=== PATIENT | male | born 1950 | race Caucasian/White ===

== ENCOUNTER → 2019-07-09 15:49 | Outpatient (BNVA) | payer OTHER, SELFPAY | PROVIDERS: Family Provider Internal Medicine; PCP Internal Medicine; Visit Provider Orthopaedic Surgery | DX: M25.562 Pain in left knee (principal); M25.561 Pain in right knee | CPT/HCPCS: 73560; 73565 ==

== ENCOUNTER 2021-01-09 10:52 | Emergency (ER) | payer OTHER, SELFPAY ==
[2021-01-09 10:57] VITALS: BP 143/93; PULSE 81; RESP 18; TEMP 36.8; O2SAT 94; BMI 17.9
[2021-01-09 11:02] VITALS: O2SAT 95
--- NOTE | 2021-01-09 11:09 | ED_ITS ---
HPI - Neck Pain/Injury General: Chief Complaint: Neck Pain/Injury Stated Complaint: SEVERE NECK PAIN Time Seen by Provider: 01/09/21 11:04 History of Present Illness: HPI Narrative: Patient is a 70-year-old male comes to the ED with severe neck pain. Patient denies any injury, trauma or fall to cause neck pain. He says 2 days ago he started getting muscle pains in his neck and has progressively gotten worse. He rates his pain currently a 7 out of 10. He says any movement causes pain in his neck. He says he does have a history of a cervical fracture that occurred when he was younger. Denies any numbness, tingling or pain radiating down his extremities. Associated symptoms: Denies headache(s) or nausea Review of Systems Const: Denies: fever(s), chills or fatigue Eyes: Denies: change in vision or eye discomfort ENMT: Denies: throat pain, odynophagia, nasal discharge or nasal congestion Card: Denies: chest pain, palpitations, edema, swelling of feet/ankles, dyspnea on exertion or orthopnea Resp: Denies: dyspnea, productive cough or non-productive cough GI: Denies: abdominal pain, nausea, vomiting, diarrhea, constipation or hematochezia : Denies: flank pain, difficulty urinating, dysuria or hematuria Musc: Reports: neck pain; Denies: back pain or extremity swelling Skin/Breast: Denies: rash or new lesions Neuro: Denies: headache(s), numbness in extremities or weakness in extremities PFS ED PFSH: Family History Mother CAD (coronary artery disease) Bleeding disorder Clotting disorder Cancer Father Diabetes Stroke Denies family history of Dementia Hyperlipidemia Psychiatric illness Chronic kidney disease (CKD) Suicide Anesthesia complication Family history of premature coronary artery disease Lung disease Hypertension Social History Smoking and tobacco status: current every day smoker cigarettes Packs smoked per day: 1 Second hand smoke exposure: Yes Alcohol intake: former Physical Exam Const: COMMON NORMALS: no acute distress, patient oriented x3 and alert GENERAL APPEARANCE: cooperative and comfortable HENMT: COMMON NORMALS: normocephalic HEAD & SCALP: normocephalic MOUTH: Normal oral and palatal mucosa present THROAT: posterior oropharynx normal and uvula midline Neck/C-Spine: COMMON NORMALS: supple GENERAL: Yes normal visual inspection CERVICAL SPINE: Yes pain with cervical ROM, Yes Paracervical muscle tenderness bilateral, Yes Trapezius muscle tenderness bilateral and Yes collar present Resp: COMMON NORMALS: normal respiratory effort, No retractions, No use of accessory muscles and clear to auscultation bilaterally AUSCULTATION: clear to auscultation bilaterally Cardio: COMMON NORMALS: regular rate, regular rhythm, S1 normal heart sound present, S2 normal heart sound present, No gallops present (Cardio), No clicks present (Cardio), No murmurs present (Cardio) and Peripheral pulses 2+ throughout RATE: regular rate RHYTHM: regular rhythm HEART SOUNDS: S1 normal heart sound present and S2 normal heart sound present PERIPHERAL PULSES: Peripheral pulses 2+ throughout GI: COMMON NORMALS: Normal to inspection, nondistended, normoactive bowel sounds present, Soft to palpation, non-tender and no masses PALPATION: Yes Soft to palpation : COMMON NORMALS: Yes no CVA tenderness BLADDER/KIDNEY EXAM: Yes no CVA tenderness Back/Pelvis: COMMON NORMALS: no CVA tenderness Extremity: COMMON NORMALS: normal to inspection Neuro: COMMON NORMALS: patient oriented x3 and moves all extremities SENSORIUM/ORIENTATION: Yes alert Skin: GENERAL SKIN EXAM: dry skin Course Vital Signs: Vital signs: Vital Signs Temperature 98.3 F 01/09/21 10:57 Pulse Rate 80 01/09/21 12:25 Respiratory Rate 18 01/09/21 12:25 Blood Pressure 145/94 01/09/21 12:25 Pulse Oximetry 94 01/09/21 12:25 MDM - Neck Pain/Injury MDM Narrative: Medical decision making narrative: Patient is a 70-year-old male comes to the ED with neck pain. Patient denies any trauma or injury to cause pain. Exam shows most of patient's tenderness is located in the soft tissue and muscles of the neck. Patient has no spinal tenderness upon palpation. He reported here to the ED wearing c-collar. X-ray of cervical spine showed no acute fractures but noted some multilevel osteoarthritis and C3- C7. Patient was given a shot of Toradol, morphine and Norflex while here in the ED. Patient diagnosed with bilateral neck pain and osteoarthritis of the cervical spine. He was discharged home with ibuprofen 800 mg and Flexeril. Ret urn to ED precautions given. Follow-up with PCP in 7 to 10 days reevaluation. Patient understood agree with plan. Imaging Data^: Xray Ortho: Attestation: I personally reviewed and interpreted this imaging study as follows: Radiologist's impression: [address] [place] [address] XRay Report Signed Patient: Manjit Hernandes Unit #: [id number] : 1950 Age/Sex: 70 / M ADM Date: 01/09/21 Loc: ER Room/Bed: Attending Dr: Ordering Provider/Ordering MD: Joce Urban Date of Service: 01/09/21 Procedure(s): XR cervical spine 3V* 57407 Accession Number(s): [id number] Report Number: [id number] WS: [id number] Cervical spine, AP, odontoid, lateral with flexion, extension and neutral positions, 01/09/2021 Clinical Data: pain with ROM Comparison: None. Findings: No compression fractures are seen. There is an anterior cervical disc fusion at C5-C6. There is degenerative disc narrowing at C3-C4, C4-C5, C5-C6 and C6-C7. There is anterior osteophyte formation and anterior longitudinal ligament calcification from C3 through C7. There is no prevertebral soft tissue swelling. The odontoid is unremarkable. The soft tissues of the neck and the lung apices are normal. On flexion and extension there is slight limitation of motion, but the disc fusion is stable. XR/XR cervical spine 3V* [id number] Impression: 1. Anterior cervical disc fusion at C5-C6. 2. Multilevel osteoarthritis and disc narrowing from C3 through C7. 3. On flexion or extension there is slight limitation of motion but the disc fusion is stable. Dictated By: Fatou Dahl MD Signed By: Fatou Dahl MD Signed Date/Time: 01/09/211154 DD/ 51 Discharge Plan Discharge Patient Disposition: Home Clinical Impression: Neck pain, bilateral Osteoarthritis cervical spine Qualifiers: Spinal osteoarthritis complication: without myelopathy or radiculopathy Qualified Code(s): M47.812 - Spondylosis without myelopathy or radiculopathy, cervical region Condition: Stable Prescriptions: New ibuprofen 800 mg tablet 800 mg PO Q8H PRN (Reason: pain) Qty: 20 RF: 0 cyclobenzaprine 10 mg tablet 10 mg PO BID PRN (Reason: muscle spasm) Qty: 20 RF: 0 No Action albuterol sulfate inhalation RF: 0 Symbicort 80-4.5 mcg/actuation HFA aerosol inhaler 2 puff INHALATION BID RF: 0 Discharge Orders: Discharge ED (Routine); Ordered 01/09/21 Ordered By: Joce Urban Referrals: Scout Guido [Primary Care Provider] - Discharge Diet: Regular Discharge Activity: Increase activity as tolerated Activity Restrictions/Additional Instructions: Follow-up with medical provider as directed. Apply cold pack on neck to help with symptoms. Take medications as prescribed. Cyclobenzaprine is a muscle relaxer can cause some drowsiness so take at night before bed. If you are going to use the muscle relaxer during the day, use with caution due to its side effects. Return to the ER or your medical provider if condition worsens. Please read and understand discharge instructions. Thank you for choosing [facility] for your healthcare needs today. Please realize this is an emergency room and that we are providing you with a medical screening exam and this may not be complete and all inclusive of all the testing and or work up that you may need to determine your ailment or severity of your illness. It is very important that you follow up as instructed or that you return to the Emergency Department should you have concerns or if your condition changes or worsens in any way. Coding Level of Care Code ED Wireline Supervisor for Aly Hong Exam Comprehensive
--- NOTE | 2021-01-09 11:19 | XR_ITS ---
WS: [id number] Cervical spine, AP, odontoid, lateral with flexion, extension and neutral positions, 01/09/2021 Clinical Data: pain with ROM Comparison: None. Findings: No compression fractures are seen. There is an anterior cervical disc fusion at C5-C6. Ther e is degenerative disc narrowing at C3-C4, C4-C5, C5-C6 and C6-C7. There is anterior osteophyte forma tion and anterior longitudinal ligament calcification from C3 through C7. There is no prevertebral so ft tissue swelling. The odontoid is unremarkable. The soft tissues of the neck and the lung apices ar e normal. On flexion and extension there is slight limitation of motion, but the disc fusion is stabl e. XR/XR cervical spine 3V* [id number] Impression: 1. Anterior cervical disc fusion at C5-C6. 2. Multilevel osteoarthritis and disc narrowing from C3 through C7. 3. On flexion or extension there is slight limitation of motion but the disc fu flor is stable.
[2021-01-09 12:02] VITALS: RESP 20
[2021-01-09] MEDS: morphine 4 mg/mL SDV 1 mL IVP (12:02)
[2021-01-09] MEDS: orphenadrine 30 mg/mL Inj 2 mL 60 MG IVP (12:02)
[2021-01-09 12:25] VITALS: BP 145/94; PULSE 80; RESP 18; O2SAT 94
[2021-01-09] MEDS: ketorolac 30 mg/mL INJ IVP (12:25)
== END 2021-01-09 12:27 | disposition home or self-care (01) ==
PROVIDERS: Emergency Provider Physician Assistant; Family Provider Internal Medicine; PCP Internal Medicine
DX: M47.812 Spondylosis without myelopathy or radiculopathy, cervical region (principal); F17.210 Nicotine dependence, cigarettes, uncomplicated
CPT/HCPCS: 72040; 96374; 96375; 99283; J1885; J2270; J2360

== ENCOUNTER → 2021-05-20 13:14 | Outpatient (BNVA) | payer OTHER, SELFPAY | PROVIDERS: Family Provider Internal Medicine; PCP Internal Medicine; Visit Provider Surgery | DX: Z01.812 Encounter for preprocedural laboratory examination (principal); Z20.822 Contact with and (suspected) exposure to COVID-19 | CPT/HCPCS: 87635 ==

== ENCOUNTER 2021-05-27 07:33 | Day surgery (SDC) | payer OTHER, SELFPAY ==
[2021-05-25 10:44] VITALS: BMI 18.6
--- NOTE | 2021-05-27 08:19 | W.PM.OPSFHP ---
Same Day Surgery H&P Indication for Procedure/HPI DATE OF PROCEDURE: May 27, 2021 CHIEF COMPLAINT/INDICATIONFOR SURGICAL PROCEDURE: Problem with defecation PREOP DIAGNOSIS: Difficulty in defecation PLANNED PROCEDRUE: Operation Date: 05/27/21 09:00 Proposed Procedures p Colonoscopy 20360 R63.4 K59.00(Not Applicable) - Magdi Herbert MD 04/06/2021 This is a pleasant 71 years old gentleman with well-known history of COPD and being chronic smoker., Patient has been having difficulty in evacuating a large bulk of stool per his description it is being hard to expel it without additional bimanual maneuver. Does report some blood with stool and he had a colonoscopy 8 years ago was within normal limits. Patient correlates his hard stool by taking Ensure. Is referred to my practice today for consideration of colonoscopy. Patient also reports history of nonintentional weight loss. Interim history 05/27/2021 Patient comes today for colonoscopy for diagnostic purposes ROS All systems have been reviewed negative except as per the above or per problem list Medications/Allergies* Home Medications Medication Instructions Recorded Confirmed Type fluticasone 100 mcg-salmeterol 50 1 inh INHALATION BID 04/06/21 05/25/21 History mcg/dose blistr powdr for inhalation albuterol sulfate 1 inh INHALATION QID PRN 05/25/21 05/25/21 History Allergies/Adverse Reactions Allergy/AdvReac Type Severity Reaction Status Date / Time meperidine [From Demerol] Allergy ADR-Agitate Verified 05/27/21 09:09 d Pertinent History/Comorbid Conditions* Family History (Updated 07/09/19 @ 16:19 by Debbie Anderson LPN) Diabetes Father CAD (coronary artery disease) Mother Clotting disorder Mother Bleeding disorder Mother Cancer Mother Stroke Father Denies family history of Dementia Hyperlipidemia Psychiatric illness Chronic kidney disease (CKD) Suicide Anesthesia complication Family history of premature coronary artery disease Lung disease Hypertension Social History Smoking and tobacco status: current every day smoker cigarettes Packs smoked per day: 1 Second hand smoke exposure: Yes Alcohol intake: former Pertinent Exam Findings alert, oriented x 3, regular rate & rhythm and procedure specific exam findings (Abdominal examination nontender nondistended soft) Recommendations Surgery/Procedure today (Colonoscopy possible biopsy and possible polypectomy) Other Plans: Plan of care; After thorough history and physical examination and reviewing the chart, plan to perform diagnostic colonoscopy. I discussed with the patient in details the risks,benefits,alternatives and indications.The risk of aspiration, bleeding, soft tissue injury, perforation of the colon and other potential concomitant complications were explained to the patient in details,also the potential need for Laproscoy/Laparotomy to repair any related complications including but not limited to colectomy and or Closotomy.The patient understood this well and did agree to proceed. Rationale was carefully and clearly discussed with the patient.Appropriate informed consent have been reviewed and signed All questions have been answered and all concerns have been addressed to patient's satisfaction. Verbal and written Instructions were given to the patient for colonoscopy prep Coding Level of Care Code Acute Supervisor Picking Crew for Aly Hong
--- NOTE | 2021-05-27 08:47 | ANES.PREANE2 ---
Pre-Anesthetic Assessment Pre-Anesthetic Assessment: Height/Weight: Height 1.88 m Weight 65.771 kg Preop Diagnosis: Difficulty in defecation Proposed Procedure: Operation Date: 05/27/21 09:00 Proposed Procedures p Colonoscopy 29800 R63.4 K59.00(Not Applicable) - Magdi Herbert MD Was Beta Robert taken within 24 hours: N/A Was Clonidine taken within 24 hours: N/A Social: Social History: Tobacco and No alcohol Exam: Pre-Anes Outpt Exam: alert, oriented x 3 and regular rate & rhythm Additional Exam Findings (including area of procedure): rhonchi Airway: Submandibular: WNL Cervical ROM: WNL MP: 2 Dentition: False Pulmonary: Pulmonary: COPD Anesthetic Plan: ASA status: 3 Anesthesia: MAC Risk of > 500 ml blood loss (7ml/kg in children): No PFSH Anesthesia PFSH: Family History Mother CAD (coronary artery disease) Bleeding disorder Clotting disorder Cancer Father Diabetes Stroke Denies family history of Dementia Hyperlipidemia Psychiatric illness Chronic kidney disease (CKD) Suicide Anesthesia complication Family history of premature coronary artery disease Lung disease Hypertension Social History Smoking and tobacco status: current every day smoker cigarettes Packs smoked per day: 1 Second hand smoke exposure: Yes Alcohol intake: former Data Anesthesia Cardiac Studies: No Data to Display
[2021-05-27 08:48] VITALS: BP 127/88; PULSE 98; RESP 18; TEMP 36.8; O2SAT 94
[2021-05-27] MEDS: sodium chloride 0.9% 1,000 ML 30 ML IV (08:55)
[2021-05-27 09:35] VITALS: BP 97/67; PULSE 97; RESP 18; TEMP 36.1; O2SAT 95
[2021-05-27 09:45] VITALS: BP 98/73; PULSE 83; RESP 18; O2SAT 92
--- NOTE | 2021-05-27 14:57 | ANE.PACU2 ---
Inpatient post-anesthesia follow up: Airway intact: Yes Vital signs: Temperature 97.0 F Pulse Rate 83 Respiratory Rate 18 Blood Pressure 98/73 Pulse Oximetry 92 Oxygen Delivery Me thod Room Air Oxygen Flow Rate Fraction of Inspir ed Oxygen Hydration adequate: Yes Nausea and vomiting: No Pain level: 1 Mental status: Baseline
== END 2021-05-27 10:23 | disposition home or self-care (01) ==
PROVIDERS: Surgery; PCP Family Medicine; Visit Provider Surgery
PROC: 0DJD8ZZ Inspection of Lower Intestinal Tract, Via Natural or Artificial Opening Endoscopic (ICD-10-PCS; CPT 45378; principal; 2021-05-27 09:00)
DX: R63.4 Abnormal weight loss (principal); Z68.1 Body mass index [BMI] 19.9 or less, adult; K59.00 Constipation, unspecified; D12.8 Benign neoplasm of rectum; J44.9 Chronic obstructive pulmonary disease, unspecified; Z82.49 Family history of ischemic heart disease and other diseases of the circulatory system; Z83.3 Family history of diabetes mellitus; F17.210 Nicotine dependence, cigarettes, uncomplicated; Z82.3 Family history of stroke
CPT/HCPCS: 45380; 88305; 96360; J2704; J7030

== ENCOUNTER 2021-08-04 09:38 | Emergency (ER) | payer OTHER, SELFPAY ==
[2021-08-04] VITALS (8 sets, daily range): BP systolic 113–138; BP diastolic 62–89; PULSE 63–76; RESP 17–30; TEMP 36.3; O2SAT 87–97; BMI 17.9
--- NOTE | 2021-08-04 10:02 | W.ED.SOB ---
HPI - SOB/Dyspnea General: Chief Complaint: Shortness of Breath/Dyspnea Stated Complaint: PNEUMONIA, WHEEZING Time Seen by Provider: 08/04/21 09:48 Source: patient Mode of arrival: EMS Limitations: no limitations History of Present Illness: HPI Narrative: 65-year-old male presents emergency room with complaints of shortness of breath. States it began yesterday got progressively worse he was given albuterol and Solu-Medrol in route he also had asked episode of chest pain this morning with brought on by deep inspiration. Has not had any productive cough. Usually is on 2 L of oxygen is now is requiring 3 L by nasal cannula. Denies any fever no productive cough is not having any chest pain at this time. MD elicited complaint: shortness of breath and cough Pertinent past history: COPD Onset (ago): day(s) (1) Context: occurred during exertion Timing: constant Severity: moderate Exacerbating factors: exertion and coughing Relieving factors: oxygen, rest and bronchodilators Known history of: COPD Associated symptoms: Reports chest congestion, chest pain and cough; Deny abdominal pain, diaphoresis, dizziness, extremity pain, fever(s), hemoptysis, lightheadedness, myalgias, nausea, orthopnea, palpitations, paresthesias, polydipsia, polyuria, rash, sense of impending doom, syncope or vomiting Treatment prior to arrival: oxygen and bronchodilator Review of Systems Const: Denies: fever(s) or diaphoresis ENMT: Denies: throat pain, ear or mastoid pain, nasal discharge or nasal congestion Card: Reports: chest pain; Denies: palpitations, lightheadedness, syncope or orthopnea Resp: Reports: chest congestion; Denies: hemoptysis GI: Denies: abdominal pain, nausea or vomiting : Denies: flank pain, dysuria, urinary frequency or urinary urgency Musc: Denies: extremity pain Skin/Breast: Denies: rash or pruritus Neuro: Denies: dizziness Endo: Denies: polyuria or polydipsia [facility] PFSH: Medical History COPD (chronic obstructive pulmonary disease) Surgical History History of colonoscopy 2011 History of right knee surgery 1998 Hx of neck surgery Family History Mother CAD (coronary artery disease) Bleeding disorder Clotting disorder Cancer Father Diabetes Stroke Denies family history of Dementia Hyperlipidemia Psychiatric illness Chronic kidney disease (CKD) Suicide Anesthesia complication Family history of premature coronary artery disease Lung disease Hypertension Social History Smoking and tobacco status: current every day smoker cigarettes Packs smoked per day: 1 Second hand smoke exposure: Yes Alcohol intake: former Physical Exam Const: GENERAL APPEARANCE: cooperative ORIENTATION/CONSCIOUSNESS: Yes awake, Yes oriented to person, Yes oriented to place and Yes oriented to time HENMT: COMMON NORMALS: normocephalic, atraumatic and hearing grossly normal bilaterally HEAD & SCALP: normocephalic and atraumatic Neck/C-Spine: COMMON NORMALS: no JVD Resp: EFFORT & INSPECTION: Yes respiratory distress and Yes labored AUSCULTATION: crackles, wheezes and diminished lung sounds Cardio: COMMON NORMALS: no JVD, regular rate, regular rhythm and No murmurs present (Cardio) RATE: regular rate RHYTHM: regular rhythm GI: COMMON NORMALS: Soft to palpation and No hepatosplenomegaly present AUSCULTATION: Yes normoactive bowel sounds PALPATION: Yes Soft to palpation, No Tenderness to palpation present (GI), No Guarding due to palpation present (GI) and Yes No hepatosplenomegaly present Extremity: COMMON NORMALS: normal to inspection, capillary refill normal, no clubbing, cyanosis or edema, no calf tenderness and no pedal edema Neuro: SENSORIUM/ORIENTATION: Yes oriented to person, Yes oriented to place and Yes oriented to time Skin: COMMON NORMALS: no rashes or lesions noted GENERAL SKIN EXAM: no rashes or lesions noted Course Vital Signs: Vital signs: Vital Signs Temperature 97.3 F L 08/04/21 09:43 Pulse Rate 71 08/04/21 16:42 Respiratory Rate 22 H 08/04/21 16:42 Blood Pressure 113/62 08/04/21 13:39 Pulse Oximetry 96 08/04/21 16:42 MDM - SOB/Dyspnea Medical Decision Making Labs and imaging reviewed. Patient is feeling better COVID was negative treat for exacerbation COPD steroids doxycycline increase nebulizers oxygen follow-up with primary care doctor the next 3 to 4 days return to the ER if worsens. Medical Records I reviewed the patient's medical records. Lab Data I reviewed the patient's lab results. : 08/04/21 09:55 08/04/21 09:55 Labs/Radiology: Radiology Impressions Chest X-Ray 08/04/21 10:18 IMPRESSION: There are no prior films for comparison. 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 Laboratory Results WBC 10.2 10^3/uL (4.0-10.0) H 08/04/21 09:55 RBC 5.43 10^6/uL (4.1-5.3) H 08/04/21 09:55 Hgb 17.2 g/dL (11.7-16.6) H 08/04/21 09:55 Hct 51.8 % (42.0-52.0) 08/04/21 09:55 MCV 95.4 fl (80-94) H 08/04/21 09:55 MCH 31.7 pg (28.0-34.0) 08/04/21 09:55 MCHC 33.2 g/dL (30.0-36.0) 08/04/21 09:55 RDW 13.5 % (12.1-15.1) 08/04/21 09:55 Plt Count 242 10^3/cmm (130-400) 08/04/21 09:55 MPV 9.7 fL (7.4-10.4) 08/04/21 09:55 Neut % (Auto) 74.4 % 08/04/21 09:55 Lymph % (Auto) 15.8 % 08/04/21 09:55 Lawrence % (Auto) 7.1 % 08/04/21 09:55 Eos % (Auto) 1.9 % 08/04/21 09:55 Baso % (Auto) 0.6 % 08/04/21 09:55 Neut # (Auto) 7.62 10^3/uL (1.8-7.7) 08/04/21 09:55 Lymph # (Auto) 1.6 10^3/uL (0.8-4.8) 08/04/21 09:55 Lawrence # (Auto) 0.7 10^3/uL (0.2-0.9) 08/04/21 09:55 Eos # (Auto) 0.2 10^3/uL (0.0-0.8) 08/04/21 09:55 Baso # (Auto) 0.1 10^3/uL (0.0-0.1) 08/04/21 09:55 Nucleated RBC % (auto) 0 % 08/04/21 09:55 Nucleated RBCs # 0.0 /100WBC 08/04/21 09:55 Specimen Type Arterial 08/04/21 10:36 Sample Site Radial, right 08/04/21 10:36 ABG pH 7.49 (7.35-7.45) H 08/04/21 10:36 ABG pCO2 31.0 mmHg (35-45) L 08/04/21 10:36 ABG pO2 90.7 mmHg (80.0-100.0) 08/04/21 10:36 ABG HCO3 23.6 mmol/L (22-26) 08/04/21 10:36 ABG O2 Saturation 98.8 08/04/21 10:36 ABG Base Excess 1.3 mmol/L (-2.0-2.0) 08/04/21 10:36 Wilfredo Test Pos 08/04/21 10:36 A-a O2 Gradient 9.1 mmHg (5-10) 08/04/21 10:36 Hematocrit 51.0 % (42-52) 08/04/21 10:36 Hgb O2 Saturation 92.2 % (95-100) L 08/04/21 10:36 Carboxyhemoglobin 5.9 %THgb (0.4-20.1) 08/04/21 10:36 Methemoglobin 0.7 % (0.4-1.5) 08/04/21 10:36 Total Hemoglobin 16.6 g/dL (14-18) 08/04/21 10:36 Sodium 140.0 mmol/L (131-143) 08/04/21 10:36 Potassium 4.0 mmol/L (3.5-5.0) 08/04/21 10:36 Glucose 102.0 mg/dL (70-115) 08/04/21 10:36 Ionized Calcium 1.2 mmol/L (1.1-1.4) 08/04/21 10:36 O2 Delivery Device Nc 08/04/21 10:36 O2 Liters/Min 2.0 % 08/04/21 10:36 FiO2 28.0 % 08/04/21 10:36 Marble Machine Tender ID Markell 08/04/21 10:36 Sodium 138 mmol/L (136-145) 08/04/21 09:55 Potassium 3.6 mmol/L (3.5-5.1) 08/04/21 09:55 Chloride 102 mmol/L (98-107) 08/04/21 09:55 Carbon Dioxide 22 mmol/L (22-29) 08/04/21 09:55 Anion Gap 17.6 (5-19) 08/04/21 09:55 BUN 15 mg/dL (8-23) 08/04/21 09:55 Creatinine 0.7 mg/dL (0.7-1.2) 08/04/21 09:55 GFR Calculation 111.8 mL/min (90-130) 08/04/21 09:55 Glucose 92 mg/dL (65-115) 08/04/21 09:55 Calculated Osmolality 286 mOsm/kg (285-295) 08/04/21 09:55 Calcium 9.6 mg/dL (8.5-10.5) 08/04/21 09:55 Total Bilirubin 0.5 mg/dL (0.15-1.2) 08/04/21 09:55 AST 14 U/L (0-40) 08/04/21 09:55 ALT 11 U/L (0-41) 08/04/21 09:55 Alkaline Phosphatase 91 IU/L (40-130) 08/04/21 09:55 Creatine Kinase 61 U/L (39-308) 08/04/21 09:55 Troponin T Baseline 10 ng/L (0-15) 08/04/21 09:55 Troponin T 120 Minute 9.86 ng/L (0-15) 08/04/21 12:20 Delta Troponin T -0.14 ABS# (0-10) L 08/04/21 12:20 Total Protein 7.0 g/dL (6.6-8.7) 08/04/21 09:55 Albumin 4.5 g/dL (3.5-5.2) 08/04/21 09:55 Globulin 2.5 g/dL (1.3-4.6) 08/04/21 09:55 Coronavirus 229E (PCR) Not detected (NOT DETECT) 08/04/21 10:37 SARS-CoV-2 (PCR) Not detected (NOT DETECT) 08/04/21 10:37 Discharge Plan Discharge Patient Disposition: Home Clinical Impression: Acute exacerbation of chronic obstructive airways disease Condition: Stable Prescriptions: New Medrol (Pankaj) 4 mg tablets,dose pack See Rx Instructions .ROUTE .COMPLEX Qty: 21 0RF Rx Instructions: orally per package directions ipratropium-albuterol 0.5 mg-3 mg(2.5 mg base)/3 mL solution for nebulization 3 ml inhalation Q6H PRN (Reason: shortness of breath or wheezing) Qty: 180 0RF doxycycline hyclate 100 mg capsule 100 mg PO BID 10 Days Qty: 20 0RF No Action fluticasone propion-salmeterol [Wixela Inhub] 100-50 mcg/dose blister with device 1 inh inhalation BID 0RF ibuprofen 800 mg tablet 800 mg PO Q8H PRN (Reason: pain) Qty: 20 0RF Hold Instructions: Resume on 05/30/21. cyclobenzaprine 10 mg tablet 10 mg PO BID PRN (Reason: muscle spasm) Qty: 20 0RF albuterol sulfate 90 mcg/actuation Hfa Aerosol Inhaler 1 inh INHALATION QID PRN (Reason: Allergy Symptoms) 0RF Discharge Orders: Discharge ED (Routine); Ordered 08/04/21 Ordered By: Matt Cruz Other Ambulatory Orders: DME: Oxygen (Order) Location: None Selected Ordered By: Matt Cruz Referrals: Pallavi Alcaraz MD [Primary Care Provider] - Discharge Diet: Usual diet Discharge Activity: Limit activity as instructed Patient Instructions: Opioid Safety Activity Restrictions/Additional Instructions: With your primary care doctor within the week. Coding Level of Care Code ED Alcohol Law Enforcement Agent for Aly Fwd Exam Comprehensive
--- NOTE | 2021-08-04 10:18 | XR_ITS ---
WS: [id number] XR chest 1V portable [id number] REASON FOR EXAM: dyspnea/cough FINDINGS: Mild tortuosity and ectasia of the thoracic aorta without aneurysmal dilatation. Normal heart size. Overall hyperexpansion of the lungs with large bullous formation in the right upper lobe, left lower lobe, and both lung apices. Coarse central reticular interstitial lung opacities which appear to be chronic. Degenerative changes in the mid and lower thoracic spine and shoulder joints. No acute bony thorax ab normality. XR/XR chest 1V portable [id number] IMPRESSION: There are no prior films for comparison. 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
--- NOTE | 2021-08-04 10:18 | ECG_ITS ---
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 Measurements Intervals [place] Rate: 58 P: 75 UT: 146 QRS: 81 QRSD: 95 T: 78 QT: 433 QTc: 429 Interpretive Statements SINUS BRADYCARDIA WITH OCCASIONAL SUPRAVENTRICULAR PREMATURE COMPLEXES POSSIBLE ANTERIOR MYOCARDIAL INFARCTION , OF INDETERMINATE AGE [30 ms Q WAVE IN V3/V4, OR R < 0.2 mV IN V4] No previous ECG available for comparison Electronically Signed On 08-04-2021 17:10:05 HOME CARE COMPANION by Marcos Alanis M.D. [id number]
[2021-08-04 10:30] LABS: Basophils # 0.1 10^3/uL (0.0-0.1); Basophils % 0.6 %; Eosinophils # 0.2 10^3/uL (0.0-0.8); Eosinophils % 1.9 %; Hematocrit 51.8 % (42.0-52.0); Hemoglobin 17.2 g/dL (11.7-16.6); Lymphocytes # 1.6 10^3/uL (0.8-4.8); Lymphocytes % 15.8 %; Mean Corpuscular HGB Conc 33.2 g/dL (30.0-36.0); Mean Corpuscular Hemoglobin 31.7 pg (28.0-34.0); Mean Corpuscular Volume 95.4 fl (80-94); Mean Platelet Volume 9.7 fL (7.4-10.4); Monocytes # 0.7 10^3/uL (0.2-0.9); Monocytes % 7.1 %; Neutrophils # 7.62 10^3/uL (1.8-7.7); Neutrophils % 74.4 %; Nucleated Red Blood Cells % 0 %; Platelet Count 242 10^3/cmm (130-400); Red Blood Count 5.43 10^6/uL (4.1-5.3); Red Cell Distribution Width 13.5 % (12.1-15.1); White Blood Count 10.2 10^3/uL (4.0-10.0)
[2021-08-04 10:49] LABS: ABG PH Result 7.49 (7.35-7.45); Alveolar-Arterial Oxygen Gradi 9.1 mmHg (5-10); Base Excess ABG 1.3 mmol/L (-2.0-2.0); Blood Gas Allen Test Pos; Blood Gas Operator Identificat MONRO; Blood Gas Sample Site Radial, right; Blood Gas Sample Type Arterial; Carboxyhemoglobin 5.9 %THgb (0.4-20.1); HCO3 ABG 23.6 mmol/L (22-26); HGB O2 Sat 92.2 % (95-100); Ionized Calcium Level - ABG 1.2 mmol/L (1.1-1.4); Methemoglobin 0.7 % (0.4-1.5); Oxygen Device NC; Oxygen Saturation ABG 98.8; PO2 ABG 90.7 mmHg (80.0-100.0); Total Hemoglobin 16.6 g/dL (14-18)
[2021-08-04 11:27] LABS: Alanine Aminotransferase 11 U/L (0-41); Albumin Level 4.5 g/dL (3.5-5.2); Alkaline Phosphatase 91 IU/L (40-130); Anion Gap 17.6 (5-19); Aspartate Amino Transferase 14 U/L (0-40); Blood Urea Nitrogen 15 mg/dL (8-23); Calcium 9.6 mg/dL (8.5-10.5); Carbon Dioxide 22 mmol/L (22-29); Chloride 102 mmol/L (98-107); Creatine Phosphokinase 61 U/L (39-308); Globulin 2.5 g/dL (1.3-4.6); Glomerular Filtration Rate 111.8 mL/min (90-130); Glucose 92 mg/dL (65-115); Osmolality Calculated 286 mOsm/kg (285-295); Potassium 3.6 mmol/L (3.5-5.1); Sodium 138 mmol/L (136-145); Total Bilirubin 0.5 mg/dL (0.15-1.2)
[2021-08-04 11:28] LABS: Troponin(5th) Baseline 10 ng/L (0-15)
--- NOTE | 2021-08-04 12:18 | ECG_ITS ---
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 Measurements Intervals [place] Rate: 69 P: 70 WV: 148 QRS: 81 QRSD: 89 T: 78 QT: 402 QTc: 432 Interpretive Statements SINUS RHYTHM WITH MARKED SINUS ARRHYTHMIA POSSIBLE ANTERIOR MYOCARDIAL INFARCTION , OF INDETERMINATE AGE [30 ms Q WAVE IN V3/V4, OR R < 0.2 mV IN V4] Compared to ECG 08/04/2021 10:37:54 Sinus bradycardia no longer present Myocardial infarct finding still present Electronically Signed On 08-04-2021 17:16:32 NEEDLE CONTROL CHENILLER by Marcos Alanis M.D. [id number]
[2021-08-04 13:07] LABS: Troponin 5 2HR 9.86 ng/L (0-15)
--- NOTE | 2021-08-04 13:10 | PC.NURSE ---
Patient resting in bed this time. Patient states that chest pain is easing and not as bad . No further requests at this time.
[2021-08-04 13:28] LABS: Troponin 5 2HR Delta -0.14 ABS# (0-10)
[2021-08-04 13:58] LABS: Adenovirus Not Detected (NOT DETECT); Chlamydia Pneumoniae Not Detected (NOT DETECT); Coronavirus 229E,HKU1,NL63,OC4 Not Detected (NOT DETECT); Human Metapneumovirus Not Detected (NOT DETECT); Human Rhinovirus/Enterovirus Not Detected (NOT DETECT); Influenza A Not Detected (NOT DETECT); Influenza A H1 Not Detected (NOT DETECT); Influenza A H1-2009 Not Detected (NOT DETECT); Influenza A H3 Not Detected (NOT DETECT); Influenza B Not Detected (NOT DETECT); Mycoplasma Pneumoniae Not Detected (NOT DETECT); Parainfluenza Virus Type 1 Not Detected (NOT DETECT); Parainfluenza Virus Type 2 Not Detected (NOT DETECT); Parainfluenza Virus Type 3 Not Detected (NOT DETECT); Parainfluenza Virus Type 4 Not Detected (NOT DETECT); Respiratory Syncytial Virus A Not Detected (NOT DETECT); Respiratory Syncytial Virus B Not Detected (NOT DETECT); SARS-COV-2 Not Detected (NOT DETECT)
[2021-08-04] MEDS: ipratropium-albuterol 3 mL Neb INHALATION (14:34)
== END 2021-08-04 16:40 | disposition home or self-care (01) ==
PROVIDERS: Emergency Provider Family Medicine; PCP Family Medicine
DX: J44.1 Chronic obstructive pulmonary disease with (acute) exacerbation (principal); F17.210 Nicotine dependence, cigarettes, uncomplicated; Z20.822 Contact with and (suspected) exposure to COVID-19
CPT/HCPCS: 36415; 36600; 71045; 80051; 80053; 82330; 82550; 82805; 84484; 85025; 87635; 93005; 94640; 96374; 99284; J2930

== ENCOUNTER 2021-10-01 09:08 | Day surgery (SDC) | payer OTHER, SELFPAY ==
[2021-09-30 11:45] VITALS: BMI 17.7
[2021-10-01 09:30] VITALS: BP 106/74; PULSE 76; RESP 20; TEMP 36.7; O2SAT 98
[2021-10-01] MEDS: sodium chloride 0.9% 1,000 ML 30 ML IV (09:33)
--- NOTE | 2021-10-01 09:40 | W.PM.OPSUD ---
Surgery/Procedure H&P Update DATE OF PROCEDURE: October 01, 2021 DATE H&P PERFORMED: 09/16/21 H&P UPDATE INFORMATION: I have reviewed H&P completed within last 30 days, I have examined patient prior to procedure and No changes to prior documentation PREOP DIAGNOSIS: Dysphagia PRIMARY INDICATION FOR PROCEDURE: The same PLANNED PROCEDURE: Operation Date: 10/01/21 10:00 Proposed Procedures p EGD 81644/r13.10(Not Applicable) - Magdi Herbert MD
--- NOTE | 2021-10-01 10:41 | ANES.PREANE2 ---
Pre-Anesthetic Assessment Height/Weight: Height 1.88 m Weight 62.596 kg Temp Pulse Resp BP Pulse Ox 98.1 F 76 20 H 106/74 98 10/01/21 09:30 10/01/21 09:30 10/01/21 09:30 10/01/21 09:30 10/01/21 09:30 Preop Diagnosis: Dysphagia Operation Date: 10/01/21 10:00 Proposed Procedures p EGD 00168/r13.10(Not Applicable) - Magdi Herbert MD Familial anesthetic complications: none Was Beta Robert taken within 24 hours: N/A Was Clonidine taken within 24 hours: N/A Last intake: Intake Last Liquid Date 09/30/21 Last Liquid Time 23:30 Last Solid Date 09/30/21 Last Solid Time 23:30 Social Tobacco and No alcohol Exam alert, oriented x 3, clear to auscultation bilaterally and regular rate & rhythm Airway Mallampati: Class I Dentition: false Pulmonary Chronic Obstructive Pulmonary Disease (2 L NC) Anesthetic Plan ASA status: 3 Anesthesia: MAC Risk of > 500 ml blood loss (7ml/kg in children): No Medications/Allergies Home Medications Medication Instructions Recorded Confirmed Last Taken Type fluticasone 100 mcg-salmeterol 50 1 inh INHALATION BID 04/06/21 10/01/21 09/30/21 History mcg/dose blistr powdr for inhalation (Wixela Inhub) albuterol sulfate 90 mcg/actuation 1 inh INHALATION QID PRN 05/25/21 10/01/21 09/30/21 History aerosol inhaler ipratropium 0.5 mg-albuterol 3 mg 3 ml INHALATION Q6H PRN #180 ml 08/04/21 10/01/21 09/30/21 Rx (2.5 mg base)/3 mL nebulization soln Allergies Allergy/AdvReac Type Severity Reaction Status Date / Time meperidine [From Demerol] Allergy ADR-Agitate Verified 10/01/21 09:21 d Current Medications Generic Name Dose Route Start Last Admin Trade Name Freq PRN Reason Stop Dose Admin Sodium Chloride 1,000 mls @ 30 mls/hr 10/01/21 09:15 10/01/21 09:33 Sodium Chloride 0.9% IV 30 mls/hr .Q24H SHAISTA Administration PFSH Anesthesia Medical History COPD (chronic obstructive pulmonary disease) Surgical History History of colonoscopy 2011 History of right knee surgery 1998 Hx of neck surgery Family History Mother CAD (coronary artery disease) Bleeding disorder Clotting disorder Cancer Father Diabetes Stroke Denies family history of Dementia Hyperlipidemia Psychiatric illness Chronic kidney disease (CKD) Suicide Anesthesia complication Family history of premature coronary artery disease Lung disease Hypertension Social History Smoking and tobacco status: current every day smoker cigarettes Packs smoked per day: 1 Second hand smoke exposure: Yes Alcohol intake: former Data Anesthesia Cardiac Studies: No Data to Display
[2021-10-01 11:01] VITALS: BP 108/75; PULSE 76; RESP 18; TEMP 36.7; O2SAT 98
[2021-10-01 11:15] VITALS: BP 114/76; PULSE 76; RESP 18; TEMP 36.8; O2SAT 95
--- NOTE | 2021-10-01 17:40 | ANE.PACU2 ---
Inpatient post-anesthesia follow up: Airway intact: Yes Vital signs: Temperature 98.2 F Pulse Rate 76 Respiratory Rate 18 Blood Pressure 114/76 Pulse Oximetry 95 Oxygen Delivery Me thod Room Air Oxygen Flow Rate 2 Fraction of Inspir ed Oxygen Hydration adequate: Yes Nausea and vomiting: No Pain level: 1 Mental status: Baseline
== END 2021-10-01 11:35 | disposition home or self-care (01) ==
PROVIDERS: PCP Family Medicine; Visit Provider Surgery
PROC: 0DJ08ZZ Inspection of Upper Intestinal Tract, Via Natural or Artificial Opening Endoscopic (ICD-10-PCS; CPT 43235; principal; 2021-10-01 10:00)
DX: R13.10 Dysphagia, unspecified (principal); K29.70 Gastritis, unspecified, without bleeding; J44.9 Chronic obstructive pulmonary disease, unspecified; Z99.81 Dependence on supplemental oxygen; F17.210 Nicotine dependence, cigarettes, uncomplicated
CPT/HCPCS: 43239; 88305; 88342; J2704; J7030

== ENCOUNTER → 2021-10-22 14:07 | Outpatient (BNVA) | payer OTHER, SELFPAY | PROVIDERS: PCP Family Medicine; Visit Provider Surgery | DX: Z09 Encounter for follow-up examination after completed treatment for conditions other than malignant neoplasm (principal); K29.70 Gastritis, unspecified, without bleeding | CPT/HCPCS: 99213 ==

== ENCOUNTER → 2021-10-28 14:14 | Outpatient (BNVA) | payer OTHER, SELFPAY | PROVIDERS: PCP Family Medicine; Visit Provider Internal Medicine | DX: J44.9 Chronic obstructive pulmonary disease, unspecified (principal); R06.02 Shortness of breath; R07.9 Chest pain, unspecified; R06.00 Dyspnea, unspecified; F17.210 Nicotine dependence, cigarettes, uncomplicated | CPT/HCPCS: 99204 ==

== ENCOUNTER 2021-12-11 09:13 | Outpatient (CLI) | payer OTHER, SELFPAY ==
--- NOTE | 2021-12-11 09:30 | USCV_ITS ---
Manjit Hernandes Age: 71 Gender: M : 1950 Exam Date: 12/11/2021 10:03 Ordering Phys: Marcos Alanis M.D ([email or web address]) Technologist: Kelly Hanson [place] [facility] [place]: SOB BP: / HR: 57 Rhythm: Sinus Technical Quality: Adequate MEASUREMENTS (Male / Female) Normal Values 2D ECHO LV Diastolic Diameter PLAX 4.2 cm 4.2 - 5.9 / 3.9 - 5.3 cm LV Systolic Diameter PLAX 2.9 cm LV Chamber Size 3.8 cm IVS Diastolic Thickness 0.9 cm 0.6 - 1.0 / 0.6 - 0.9 cm IVS Systolic Thickness 0.8 cm LVPW Diastolic Thickness 0.8 cm 0.6 - 1.0 / 0.6 - 0.9 cm LVPW Systolic Thickness 1.1 cm RV Chamber Size 3.4 cm LVOT Diameter 2.1 cm LV Ejection Fraction 2D Teich 58.7 % LV Ejection Fraction MOD 2C 65.5 % LV Ejection Fraction 2C AL 65.9 % LA Diameter 2.1 cm LA Width 2.4 cm LA Height 2.9 cm RA Width 3.5 cm RA Height 3.1 cm Aorta at Sinotubular Diameter 2.9 cm IVC Diameter 1.3 cm M-MODE Aortic Annulus Diameter 4.1 cm LA Ao Ratio MM 0.6 MV E Point Septal Separation 0.4 cm DOPPLER AV Peak Velocity 150.0 cm/s LVOT Peak Velocity 118.0 cm/s AV Area Cont Eq vti 2.4 cm squared AV Area Cont Eq pk 2.7 cm squared MV Area PHT 3.3 cm squared Mitral E to A Ratio 2.7 MV E' Velocity 57.5 cm/s Mitral E to MV E' Ratio 8.0 Mitral E to LV E' Lateral Ratio 9.3 Mitral E to LV E' Septal Ratio 7.0 TR Peak Velocity 197.6 cm/s TR Peak Gradient 15.6 mmHg TR Mean Velocity 155.2 cm/s TR Mean Gradient 10.5 mmHg TR Velocity Time Integral 61.9 cm TV Peak E Velocity 72.0 cm/s Right Atrial Pressure 3.0 mmHg Pulmonary Artery Systolic Pressu 18.6 mmHg PV Peak Velocity 59.0 cm/s RV Acceleration Time 0.1 s RV Ejection Time 0.3 s RV AcT/ET 0.3 FINDINGS Left Ventricle Normal left ventricular size. LV systolic function is normal with EF of 55-60%. No regional wall motion abnormalities. Right Ventricle The right ventricle is normal in size and function. Right Atrium The right atrium is normal in size. Left Atrium The left atrium is normal in size. Mitral Valve Structurally normal mitral valve without significant stenosis or prolapse. There is no mitral regurgitation. Aortic Valve Structurally normal aortic valve without significant sclerosis or stenosis. There is no aortic regurgitation. Tricuspid Valve Structurally normal tricuspid valve without significant stenosis. Trace tricuspid regurgitation. Pulmonary artery systolic pressure is normal. Pulmonic Valve Not well visualized.Mild pulmonic regurgitation Pericardium Normal pericardium without effusion. Aorta Normal ascending aorta dimension. IVC CONCLUSIONS LV systolic function is normal with EF of 55-60% Trace tricuspid regurgitation Mild pulmonic regurgitation No comparison studies are available Marcos Alanis MD (Electronically Signed) Final Date: 12 December 2021 11:37 S
== END 2021-12-11 09:14 | disposition home or self-care (01) ==
LOC: RAD 09:17
PROVIDERS: PCP Family Medicine; Visit Provider Internal Medicine
DX: R06.02 Shortness of breath (principal)
CPT/HCPCS: 93306

== ENCOUNTER → 2022-01-06 14:59 | Outpatient (BNVA) | payer OTHER, SELFPAY | PROVIDERS: PCP Family Medicine; Visit Provider Internal Medicine | DX: R06.00 Dyspnea, unspecified (principal); F17.210 Nicotine dependence, cigarettes, uncomplicated | CPT/HCPCS: 99213 ==

== ENCOUNTER 2022-03-03 13:41 | Outpatient (CLI) | payer OTHER, SELFPAY ==
--- NOTE | 2022-03-03 14:00 | FL_ITS ---
WS: [id number] Modified barium swallow, 03/03/2022 Clinical Data: R13.10 - Dysphagia, unspecified Comparison: None. Fluoroscopy time: 1min [id number] # of spot films: 1 Findings: The patient had an anterior cervical disc fusion at C5-C6. The patient had a functional oral phase of swallowing. There is a slight delay in propulsion of material past the C5-6 anterior cervical disc f usion. There is no aspiration or penetration. The barium tablet delayed in the midesophagus but swall owing water propelled the tablet into the stomach. FL/FL barium swallow modifd [id number] Impression: 1. Negative for aspiration or penetration. 2. Slight delay in propulsion of material passed C5-6 ACDF. 3. Minimal delay in the midesophagus of moving barium tablet into the stomach.
== END 2022-03-03 13:42 | disposition home or self-care (01) ==
LOC: RAD 13:43
PROVIDERS: PCP Family Medicine; Visit Provider Surgery
DX: R13.10 Dysphagia, unspecified (principal)
CPT/HCPCS: 74230; 92611

== ENCOUNTER → 2022-03-08 15:11 | Outpatient (BNVA) | payer OTHER, SELFPAY | PROVIDERS: PCP Family Medicine; Visit Provider Surgery | DX: R13.10 Dysphagia, unspecified (principal) | CPT/HCPCS: 99212 ==

== ENCOUNTER → 2022-09-14 15:25 | Outpatient (BNVA) | payer OTHER, SELFPAY | PROVIDERS: PCP Family Medicine; Visit Provider Internal Medicine Pulmonary Disease | DX: J44.9 Chronic obstructive pulmonary disease, unspecified (principal); R91.8 Other nonspecific abnormal finding of lung field; F17.210 Nicotine dependence, cigarettes, uncomplicated | CPT/HCPCS: 99204 ==

== ENCOUNTER → 2022-12-17 10:06 | Outpatient (BNVA) | payer OTHER, SELFPAY | PROVIDERS: PCP Family Medicine; Visit Provider Internal Medicine Pulmonary Disease | DX: J44.9 Chronic obstructive pulmonary disease, unspecified (principal); R91.1 Solitary pulmonary nodule; F17.210 Nicotine dependence, cigarettes, uncomplicated; Z99.81 Dependence on supplemental oxygen | CPT/HCPCS: 99214 ==

== ENCOUNTER 2023-01-26 12:25 | Outpatient (CLI) | payer OTHER, SELFPAY ==
--- NOTE | 2023-01-26 | MR_ITS ---
WS: [id number] MRI LUMBAR SPINE NONCONTRAST TECHNIQUE: Sagittal T1, T2 and STIR imaging. Axial T1 and T2 imaging. CLINICAL INFORMATION: LBP COMPARISON: None. FINDINGS: Mild lumbar curve. Mild compression superior endplates L2, L3, and L4 with mild compression worse at L3 with loss of approximately 20% vertebral body height. No significant retropulsion. Soft tissue oni ma in the L2, L3, and L4 superior endplates. Small amount of edema in the RIGHT L3 facet may be postt raumatic or degenerative. 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 L1-L2: Mild annular bulging. Slight effacement of the ventral thecal sac. Tiny annular fissure. Mild facet arthropathy. Spinal canal and foramen are patent. L2-L3: Mild annular bulging with slight narrowing of subarticular recess bilaterally with mild centra l canal stenosis. Mild facet arthropathy. Mild LEFT and no significant RIGHT foraminal narrowing. L3-L4: Mild annular bulging with slight narrowing of the subarticular recess bilaterally. Mild centra l canal stenosis. Impingement traversing L4 nerve root nerve roots bilaterally. Mild LEFT and no sign ificant RIGHT foraminal narrowing. Moderate facet arthropathy ligamentum flavum hypertrophy. L4-L5: Mild annular bulging with slight effacement of the ventral thecal sac. Mild central canal sten osis with narrowing of the subarticular recess. Moderate facet arthropathy. Mild LEFT greater than RI GHT foraminal narrowing. L5-S1: Mild annular bulging with a tiny annular fissure. Shallow central protrusion slightly contacts the traversing S1 nerve roots bilaterally. Mild facet arthropathy. Foramen are patent. Visualized pelvic bony structures: Normal. Paravertebral soft tissues: Normal. Prior postoperative changes anterior fusion of the cervical spine at C5-C6.Disc osteophyte complexes C3-C4 and C4-C5 with mild central canal stenosis. Slightly aneurysmal infrarenal abdominal aorta with peripheral mural thrombus measuring 2.2 x 2.2 cm in AP by transverse MR/MR lumbar spine wo con* [id number] IMPRESSION: 1. Mild compression of the superior endplates at L2, L3, and L4 with mild daisy a. This is worse at L3 with mild compression superior endplate measuring approx imately 20%. No retropulsion. 2. Mild central canal stenosis L2-L3, L3-L4, L4-L5 with mild annular bulging a nd slight impingement subarticular recess bilaterally. 3. Small central protrusion L5-S1 with tiny annular fissure with slight imping ement traversing S1 nerve roots. 4. Moderate facet arthropathy L3-L5.
--- NOTE | 2023-01-26 | MR_ITS ---
WS: [id number] MRI LEFT KNEE NONCONTRAST TECHNIQUE: Axial PD, coronal PD fat sat, coronal PD, sagittal PD, and sagittal PD fat-sat images obta ined. Patient declined contrast. CLINICAL INFORMATION: LT KNEE PAIN COMPARISON: None. FINDINGS: Distal quadriceps and patella tendons are intact. Normal ACL and PCL. Normal lateral meniscus. Comple x tear involving the posterior horn medial meniscus extending to the articular surface. Slight periph eral extrusion of the medial meniscus. 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 Normal medial and lateral c ollateral ligaments. Normal popliteal fossa. MR/MR knee LT wo con* [id number] IMPRESSION: 1. Normal ACL and PCL. 2. Complex tear involving the posterior horn medial meniscus extending to the articular surface with mild peripheral extrusion. 3. 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 4. Moderate tricompartmental arthritis 5. No other acute findings. Outbridge grading: grade III: partial-thickness cartilage loss with focal ulcer ation
--- NOTE | 2023-01-26 12:45 | CTR_ITS ---
PROCEDURE INFORMATION: Exam: CT Chest Without Contrast; Diagnostic Exam date and time: 01/26/2023 12:59 PM Age: 72 years old Clinical indication: Condition or disease; Lung condition and disease; Pulmonary nodule, solitary; Additional info: Pulmonary nodules, PT having mri too TECHNIQUE: Imaging protocol: Diagnostic computed tomography of the chest without contrast. Radiation optimization: All CT scans at this facility use at least one of these dose optimization techniques: automated exposure control; mA and/or kV adjustment per patient size (includes targeted exams where dose is matched to clinical indication); or iterative reconstruction. REPORTING DATA: Count of CT and Cardiac NM exams in prior 12 months: This patient has received 3 known CTs and 0 known cardiac nuclear medicine studies in the 12 months prior to the current study. COMPARISON: CT chest abdpel w/*[id number] 09/08/2022 12:06 PM RADIATION DOSE METRICS: Total DLP (mGy-cm): 202.66 FINDINGS: Lungs: Extensive COPD with pronounced emphysematous changes, stable. There is an irregular stellate shaped opacity right upper lobe unchanged likely representing scar. 1.4 cm subpleural nodule left lingula unchanged. Additional sessile shaped density left lingula a the also unchanged likely representing scar chronic atelectasis. Stable small subpleural nodule right lower lobe measuring 6 mm. Scattered linear atelectasis lower lung zones, unchanged. Pleural spaces: Unremarkable. No pneumothorax. No pleural effusion. Heart: Heart is relatively small in size unchanged likely secondary to COPD. Mild calcification of coronary arteries. No significant pericardial effusion. A in the Lymph nodes: Unremarkable. No enlarged lymph nodes. Vasculature: Unremarkable. No aortic aneurysm. Bones/joints: Mild-moderate degenerative changes throughout the thoracic spine. No acute bony abnormalities. Soft tissues: Unremarkable. CT/CT chest wo con [id number] IMPRESSION: 1. 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 2. Stable circumscribed subpleural pulmonary nodules left lingula and right lower lobe largest which measures 1.4 cm, likely benign. Recommend six-month follow-up study for continued surveillance. 3. Probable scarring right upper lobe and left lingula also unchanged. COMMENTS: In the absence of a history or active diagnosis of lung cancer, it is recommended that this patient with emphysema be evaluated for enrollment in a low dose CT lung cancer screening program.
== END 2023-01-26 12:26 | disposition home or self-care (01) ==
PROVIDERS: PCP Family Medicine; Visit Provider Internal Medicine Pulmonary Disease
DX: R91.8 Other nonspecific abnormal finding of lung field (principal); M25.561 Pain in right knee; J43.9 Emphysema, unspecified; M51.27 Other intervertebral disc displacement, lumbosacral region; M48.061 Spinal stenosis, lumbar region without neurogenic claudication; S83.232A Complex tear of medial meniscus, current injury, left knee, initial encounter; X58.XXXA Exposure to other specified factors, initial encounter; M22.42 Chondromalacia patellae, left knee
CPT/HCPCS: 71250; 72148; 73721

== ENCOUNTER 2023-02-08 12:42 | Outpatient (CLI) | payer OTHER, SELFPAY ==
[2023-02-08 12:50] VITALS: BP 139/91
[2023-02-08 13:09] VITALS: PULSE 69; RESP 18; O2SAT 94
[2023-02-08] MEDS: albuterol 2.5 mg/3 mL Neb INHALATION (13:09)
[2023-02-08 13:14] VITALS: PULSE 72
== END 2023-02-08 12:43 | disposition home or self-care (01) ==
LOC: RT 12:44
PROVIDERS: PCP Family Medicine; Visit Provider Internal Medicine Pulmonary Disease
DX: R06.02 Shortness of breath (principal)
CPT/HCPCS: 94060; 94618; 94726; 94729; J7613

== ENCOUNTER → 2023-03-22 09:52 | Outpatient (BNVA) | payer OTHER, SELFPAY | PROVIDERS: PCP Family Medicine; Referring Provider Family Medicine; Visit Provider Student in an Organized Health Care Education/Training Program | DX: Z01.818 Encounter for other preprocedural examination; S83.242A Other tear of medial meniscus, current injury, left knee, initial encounter; X58.XXXA Exposure to other specified factors, initial encounter | CPT/HCPCS: 73560; 73565; 99204 ==

== ENCOUNTER → 2023-03-24 14:06 | Outpatient (BNVA) | payer OTHER, SELFPAY | PROVIDERS: PCP Family Medicine; Referring Provider Family Medicine; Visit Provider Orthopaedic Surgery | DX: S32.029A Unspecified fracture of second lumbar vertebra, initial encounter for closed fracture (principal); S32.039A Unspecified fracture of third lumbar vertebra, initial encounter for closed fracture; S32.049A Unspecified fracture of fourth lumbar vertebra, initial encounter for closed fracture; X58.XXXA Exposure to other specified factors, initial encounter; M48.061 Spinal stenosis, lumbar region without neurogenic claudication; M48.07 Spinal stenosis, lumbosacral region | CPT/HCPCS: 72100; 99204 ==

== ENCOUNTER 2023-04-04 08:08 | Outpatient (CLI) | payer OTHER, SELFPAY ==
--- NOTE | 2023-04-04 08:00 | NM_ITS ---
WS: [id number] NUCLEAR MEDICINE BONE SCAN Radiopharmaceutical: 23.7 Tc-99m MDP mCi IV Injection site: Antecubital Postinjection imaging delay: 1 hr CLINICAL INFORMATION: lumbar fracture COMPARISON: Radiograph 03/24/2023 FINDINGS: Bone lesions: Small amount of bony uptake involving the superior endplates at L3 and L4 compatible wi th recent acute compression deformities. Thoracolumbar curve. No other suspicious foci of uptake. Soft tissue contours: Normal. Kidneys: Normal. Other findings: Degenerative type uptake involving both knees, AC joints, both ankles. Degenerative t ype uptake involving the mid and lower cervical spine. IMPRESSION: Small amount of bony uptake involving the superior endplates at L3 and L4 compatible with recent acut e compression deformities.
[2023-04-04 09:37] LABS: Add Urine Microscopic? NO; Charge for UA Resulting for Rev
[2023-04-04 09:39] LABS: Basophils # 0.1 10^3/uL (0.0-0.1); Basophils % 0.7 %; Eosinophils # 0.3 10^3/uL (0.0-0.8); Eosinophils % 3.1 %; Hematocrit 50.3 % (37-53); Lymphocytes # 1.8 10^3/uL (0.8-4.8); Lymphocytes % 18.2 %; Mean Corpuscular HGB Conc 33.2 g/dL (30-55); Mean Corpuscular Hemoglobin 30.9 pg (27-33); Monocytes # 0.7 10^3/uL (0.2-0.9); Monocytes % 7.5 %; Neutrophils # 6.82 10^3/uL (1.8-7.7); Neutrophils % 70.3 %; Nucleated Red Blood Cells % 0 %; Platelet Count 274 10^3/cmm (157-399); Red Blood Count 5.41 10^6/uL (3.85-5.65); Red Cell Distribution Width 13.7 % (12.1-15.1); White Blood Count 9.71 10^3/uL (3.29-11.43)
[2023-04-04 10:00] LABS: Alanine Aminotransferase 15 U/L (0-41); Alkaline Phosphatase 104 U/L (40-130); Anion Gap 9.9 (5-19); Aspartate Amino Transferase 17 U/L (0-40); Blood Urea Nitrogen 11 mg/dL (8-23); Calcium 9.3 mg/dL (8.5-10.5); Carbon Dioxide 31 mmol/L (22-29); Chloride 98 mmol/L (98-107); Globulin 2.9 g/dL (1.3-4.6); Glucose 92 mg/dL (65-115); Osmolality Calculated 279 mOsm/kg (285-295); Potassium 3.9 mmol/L (3.5-5.1); Sodium 135 mmol/L (136-145); Total Bilirubin 0.2 mg/dL (0.15-1.2); Total Protein 6.9 g/dL (6.6-8.7)
[2023-04-04 10:56] LABS: Bilirubin Urine Neg (Negative); Blood Urine Neg (Negative); Glucose Urine UA Norm (Normal); Ketones Urine Negative (Negative); Leukocyte Esterase Urine Negative (Negative); Nitrate Urine Negative (Negative); Protein Urine Neg (Negative); Urine Appearance Clear (CLEAR); Urine Color Yellow (Yellow); Urobilinogen Urine Norm (Negative); pH Urine 7 (5-7)
== END 2023-04-04 08:09 | disposition home or self-care (01) ==
PROVIDERS: Student in an Organized Health Care Education/Training Program; PCP Family Medicine; Visit Provider Orthopaedic Surgery
DX: Z01.818 Encounter for other preprocedural examination (principal); S32.038A Other fracture of third lumbar vertebra, initial encounter for closed fracture; S32.048A Other fracture of fourth lumbar vertebra, initial encounter for closed fracture; X58.XXXA Exposure to other specified factors, initial encounter
CPT/HCPCS: 36415; 78306; 80053; 81003; 85025; A9561

== ENCOUNTER → 2023-04-06 14:36 | Outpatient (BNVA) | payer OTHER, SELFPAY | PROVIDERS: PCP Family Medicine; Visit Provider Internal Medicine | DX: R07.9 Chest pain, unspecified (principal); R06.00 Dyspnea, unspecified; F17.210 Nicotine dependence, cigarettes, uncomplicated | CPT/HCPCS: 99214 ==

== ENCOUNTER 2023-04-13 06:25 | Day surgery (SDC) | payer OTHER, SELFPAY ==
[2023-04-13] VITALS (11 sets, daily range): BP systolic 99–134; BP diastolic 56–89; PULSE 69–82; RESP 12–21; TEMP 36.1–36.4; O2SAT 95–99; BMI 17.9
[2023-04-13] MEDS: ketorolac 30 mg/mL INJ IVP (07:04)
[2023-04-13] MEDS: acetaminophen 1,000 MG/100 ML PIGGYBACK 400 MG IV (07:05)
[2023-04-13] MEDS: scopolamine 1.5 Patch 1 PATCH TRANSDERMA (07:05)
--- NOTE | 2023-04-13 07:05 | W.PM.OPSUD ---
Surgery/Procedure H&P Update DATE OF PROCEDURE: April 13, 2023 DATE H&P PERFORMED: 03/22/23 H&P UPDATE INFORMATION: I have reviewed H&P completed within last 30 days, I have examined patient prior to procedure and No changes to prior documentation PREOP DIAGNOSIS: Left knee medial meniscus tear PRIMARY INDICATION FOR PROCEDURE: Left knee medial meniscus tear PLANNED PROCEDURE: Operation Date: 04/13/23 08:05 Proposed Procedures p LEFT KNEE DIAGNOSTIC AND SURGICAL ARTHROSCOPY, PARTIAL MEDIAL MENISCECTOMY(Left) - Efra Urban DO
[2023-04-13] MEDS: sodium chloride 0.9% 1,000 ML 30 ML IV (07:07)
[2023-04-13] MEDS: ceFAZolin 2,000 MG in sodium chloride 0.9% (plus) 50 ML 100 MG IV (08:03)
--- NOTE | 2023-04-13 08:08 | ANES.PREANE2 ---
Pre-Anesthetic Assessment Height/Weight: Height 1.88 m Weight 63.503 kg Temp Pulse Resp BP Pulse Ox O2 Del Method O2 Flow Rate 97.6 F 82 16 134/89 95 Nasal Cannula 2.0 04/13/23 06:48 04/13/23 06:48 04/13/23 06:48 04/13/23 06:48 04/13/23 06:48 04/13/23 06:48 04/13/23 06:48 Preop Diagnosis: Left knee medial meniscus tear Operation Date: 04/13/23 08:05 Proposed Procedures p LEFT KNEE DIAGNOSTIC AND SURGICAL ARTHROSCOPY, PARTIAL MEDIAL MENISCECTOMY(Left) - Efra Rajni, DO Familial anesthetic complications: None Was Beta Robert taken within 24 hours: N/A Was Clonidine taken within 24 hours: N/A Last intake: Intake Last Liquid Date 04/12/23 Last Liquid Time 22:00 Last Solid Date 04/12/23 Last Solid Time 22:00 Social No alcohol and No tobacco Exam alert, oriented x 3, clear to auscultation bilaterally and regular rate & rhythm Airway Mallampati: Class I Dentition: full Pulmonary Chronic Obstructive Pulmonary Disease (2 L NC continuously) Anesthetic Plan ASA status: 4 Anesthesia: General Risk of > 500 ml blood loss (7ml/kg in children): No Medications/Allergies Home Medications Medication Instructions Recorded Confirmed Last Taken Type albuterol sulfate 90 mcg/actuation 1 inh inhalation QID PRN Allergy 05/25/21 04/13/23 04/13/23 History aerosol inhaler Symptoms ipratropium 0.5 mg-albuterol 3 mg 3 ml inhalation Q6H PRN shortness 08/04/21 04/12/23 09/30/21 Rx (2.5 mg base)/3 mL nebulization of breath or wheezing #180 mL soln tiotropium 2.5 mcg-olodaterol 2.5 2 puff inhalation DAILY #4 grams 10/20/22 04/13/23 04/12/23 Rx mcg/actuation mist for inhalation (Stiolto Respimat) cholecalciferol (vitamin D3) 1,250 1,250 mcg PO DAILY 04/06/23 04/12/23 04/12/23 History mcg (50,000 unit) capsule folic acid 1 mg tablet 1 mg PO DAILY 04/06/23 04/12/23 04/12/23 History guaifenesin 600 mg tablet, 600 mg PO DAILY 04/06/23 04/12/23 04/12/23 History extended release 12 hr (Mucinex) Allergies Allergy/AdvReac Type Severity Reaction Status Date / Time meperidine [From Demerol] Allergy ADR-Agitate Verified 04/13/23 06:46 d Current Medications Generic Name Dose Route Start Last Admin Trade Name Freq PRN Reason Stop Dose Admin Sodium Chloride 1,000 mls @ 30 mls/hr 04/13/23 06:45 04/13/23 07:07 Sodium Chloride 0.9% IV 04/14/23 06:44 30 mls/hr .Q24H SHAISTA Administration PFSH Anesthesia Medical History COPD (chronic obstructive pulmonary disease) Surgical History History of colonoscopy 2011 History of right knee surgery 1998 Hx of neck surgery Family History Mother CAD (coronary artery disease) Bleeding disorder Clotting disorder Cancer Father Diabetes Stroke Denies family history of Dementia Hyperlipidemia Psychiatric illness Chronic kidney disease (CKD) Suicide Anesthesia complication Family history of premature coronary artery disease Lung disease Hypertension Social History Smoking and tobacco/nicotine status: current every day tobacco/nicotine user cigarettes Packs smoked per day: 1 Second hand smoke exposure: Yes Alcohol intake: former Substance/Drug Use: never Data Anesthesia Cardiac Studies: Echocardiogram 12/11/21
[2023-04-13] MEDS: lidocaine-epi 2% 20 mL INJ 40 ML INJECTION (09:00)
--- NOTE | 2023-04-13 09:10 | W.PM.BPON ---
Date of Procedure: 04/13/2023 Surgeon: Efra Urban DO Protective Signal Installer Helper(s): Joce Urban PA-C Procedure(s) performed: Left knee diagnostic and surgical arthroscopy partial medial meniscectomy Left knee diagnostic and surgical arthroscopy with partial lateral meniscectomy Left knee diagnostic and surgical arthroscopy medial compartment chondroplasty Left knee diagnostic and surgical arthroscopy extensive synovectomy of medial lateral patellofemoral compartments Findings of the procedure(s): Left knee arthroscopy procedure hide notification of extensive synovitis as well as medial and lateral meniscus tearing and chondromalacia procedure went as planned Estimated blood loss: 1 cc Specimen(s) removed: None Post-operative diagnosis: Left knee medial and lateral meniscus tear, chondromalacia, extensive synovitis
--- NOTE | 2023-04-13 09:17 | P.OP_ITS ---
Operative Report Date of procedure: April 13, 2023 Pre-op diagnosis: Left knee medial meniscus tear Procedure done: Left knee diagnostic and surgical arthroscopy partial medial meniscectomy Left knee diagnostic and surgical arthroscopy with partial lateral meniscectomy Left knee diagnostic and surgical arthroscopy medial compartment chondroplasty Left knee diagnostic and surgical arthroscopy extensive synovectomy of medial lateral patellofemoral compartments Surgeon: Efra Urban DO Mortgage Loan Originator: Joce Urban PA-C: MAICO was necessary for assistance in this case with execution of the procedure with assistance in wound closure instrumentation as well as holding leg positioning to execute procedure. Procedure: Post-op diagnosis: Left knee medial meniscus tear Left knee lateral meniscus tear Left knee Chondromalacia Left knee extensive Synovitis Procedure done: Left knee diagnostic and surgical arthroscopy partial medial meniscectomy Left knee diagnostic and surgical arthroscopy with partial lateral meniscectomy Left knee diagnostic and surgical arthroscopy medial compartment chondroplasty Left knee diagnostic and surgical arthroscopy extensive synovectomy of medial lateral patellofemoral compartments Surgeon: Efra Urban DO Estimated blood loss: 1cc Tourniquet: No tourniquet was used IV fluids: See anesthesia record Complications: None Findings: See operative report narrative Condition: stable Disposition: same day Brief History: Patient is a 73-year-old male with left?knee?pain.? Patient has failed conservative treatment who has been worked up for left??knee?pain in the outpatient setting. MRI findings consistent with tear of the medial meniscus. talked in the office about treatment options patient would like to proceed with a left?knee?diagnostic and surgical arthroscopy with partial medial meniscectomy.? Patient understand the ins and outs of the procedure the risk benefits complication alternatives to treatment options.? Understanding risk of surgery they agree to proceed with surgical intervention.? Patient understand this may not provide patient with complete symptomatic relief of? pain as patient does have some underlying arthritis.? Understanding this and patient agree to proceed with surgical intervention all questions answered. Procedure: Patient seen and evaluated in the preoperative holding area.? Consent was reviewed and signed with patient.? Correct extremity was then marked.? Patient seen evaluated Anesthesia Department once cleared for surgery patient was taken back to the operative suite.? Patient was transported onto the OR table in supine position.? All bony prominences well-padded patient was appropriate secured to the bed.? Once appropriately anesthetized a nonsterile tourniquet was applied to the left thigh.? The left lower extremity was then prepped and draped in standard orthopedic fashion.? Final timeout performed.? Patient received appropriate preoperative antibiotics. Patient received local anesthetic of lidocaine with epinephrine into the joint as well as around the portal sites.? No tourniquet was inflated A standard 2 portal vertical incision diagnostic and surgical arthroscopy of the ?knee?was performed in standard fashion.? Small stab incision made in the inferolateral portal introduced trocar and arthroscope into the suprapatellar pouch.? Suprapatellar pouch was subsequently visualized and found to have significant synovitis but no loose bodies.? Patient had noticeable significant inflamed infrapatellar fat pad and thickening hypertrophic within the patellofemoral compartment.? ?The medial gutter was free of loose bodies I then introduced the arthroscope into the medial compartment.? Within the medial compartment I then established my inferior medial working portal utilizing spinal needle outside in technique.? Once established I then visualized our articular cartilage of the medial compartment with a valgus stress.? Patient was found to have grade 2-3 chondromalacia throughout the medial compartment.? Next I inspected the menisc us.? With an arthroscopic probe was utilized to visual? all aspects of the meniscus.? Meniscal root was found to be intact.? Meniscus was found to be torn at posterior horn.? I then subsequently introduced a basket forceps as well as arthroscopic shaver to perform a partial medial meniscectomy to stable meniscal tissue and then utilized a thermal wand to anneal the edges.? Next, I then performed a synovectomy of the medial compartment.? Given patient's chondromalacia there was areas of unstable articular cartilage and I subsequently performed a chondroplasty with arthroscopic shaver and thermal wand.? This completed medial compartment work. Next a introduced the arthroscope to the intercondylar notch.? PCL and ACL were intact. patient had significant thickening of the infrapatellar fat pad spanning into the medial and lateral compartments.? I then performed an extensive synovectomy with the arthroscopic shaver of the patellofemoral medial and lateral compartments as well as the intercondylar notch. Advance the?scope?into the retrocruciate space and no loose bodies were found. Next I introduced the arthroscope into the lateral compartment the lateral compartment was found to have grade 2 chondromalacia.? Lateral meniscus was found to be in torn at the body and horn junction. As a result I subsequently utilized arthroscopic shaver and basket forceps to perform a partial lateral meniscectomy as this was all in the white white zone. This was taken to stable meniscal tissue. The root was intact.? Given the grade II chondromalacia there is no unstable cartilage pieces to perform chondroplasty.? This completed my work of the lateral compartment and then performed a synovectomy of the lateral compartment.? Next of the arthroscope was placed into the lateral gutter and this was free of loose bodies.? Finally I reintroduced the arthroscope into the patellofemoral compartment.? The patellofemoral was found to have grade 2 chondromalacia of the patellofemoral compartment.? At this point I utilized arthroscopic shaver as well as thermal wand to perform extensive synovectomy of the patellofemoral compartment. This completed my work of the patellofemoral space.? I then switch my portal sites to the medial working portal.? Completed the rest of my synovectomy and the rest of my examination arthroscopy was normal. All fluid was suctioned from the joint.? ?All instruments were withdrawn.? Portal sites were closed with interrupted nylon suture.? portal sites were then covered with with Xeroform 4 x 4's ABD Curlex and Prateek wrap.? Patient was then subsequently awakened from anesthesia and taken to PACU in stable condition. Disposition: Patient taken to PACU in stable condition recovering well.? Will receive appropriate discharge structure as well as pain medication postoperatively as well as? DVT prophylaxis.we will have patient follow-up with us in the office in 2 weeks.? We will weightbearing as tolerated to the operative lower extremity.? Patient understands and agrees with current plan.? All questions answered.
--- NOTE | 2023-04-13 09:18 | PM.PACU ---
PACU note Narrative: Patient is a 73-year-old male who just underwent a left knee surgical diagnostic arthroscopy. pt transferred to PACU in stable condition. Dressing is dry. pt is somnolent but arousable due to residual anesthesia. distal pulses are palpable toes are warm and well-perfused. Cap refill is normal and under 2 seconds. Unable to do any further assessment due to patient's residual anesthesia. Exam: unarousable Disposition: discharged
== END 2023-04-13 10:41 | disposition home or self-care (01) ==
PROVIDERS: PCP Family Medicine; Visit Provider Student in an Organized Health Care Education/Training Program
PROC: (CPT 29870; principal; 2023-04-13 08:05)
DX: S83.242A Other tear of medial meniscus, current injury, left knee, initial encounter (principal); S83.282A Other tear of lateral meniscus, current injury, left knee, initial encounter; X58.XXXA Exposure to other specified factors, initial encounter; M94.262 Chondromalacia, left knee; M65.9 Synovitis and tenosynovitis, unspecified; J44.9 Chronic obstructive pulmonary disease, unspecified; Z99.81 Dependence on supplemental oxygen; F17.210 Nicotine dependence, cigarettes, uncomplicated
CPT/HCPCS: 29876; 29880; J0131; J0690; J1100; J1885; J2250; J2405; J2704; J3010; J3490; J7030

== ENCOUNTER → 2023-04-26 08:44 | Outpatient (BNVA) | payer OTHER, SELFPAY | PROVIDERS: PCP Family Medicine; Visit Provider Student in an Organized Health Care Education/Training Program | DX: Z98.890 Other specified postprocedural states (principal) | CPT/HCPCS: 99024 ==

== ENCOUNTER → 2023-06-02 10:25 | Outpatient (BNVA) | payer OTHER, SELFPAY | PROVIDERS: PCP Family Medicine; Visit Provider Internal Medicine Pulmonary Disease | DX: J43.2 Centrilobular emphysema (principal); R91.8 Other nonspecific abnormal finding of lung field; F17.210 Nicotine dependence, cigarettes, uncomplicated | CPT/HCPCS: 99214 ==

== ENCOUNTER → 2023-06-07 14:23 | Outpatient (BNVA) | payer OTHER, SELFPAY | PROVIDERS: PCP Family Medicine; Visit Provider Student in an Organized Health Care Education/Training Program | DX: Z98.890 Other specified postprocedural states (principal) | CPT/HCPCS: 99024; 99213 ==

== ENCOUNTER → 2023-09-22 14:42 | Outpatient (BNVA) | payer OTHER, SELFPAY | PROVIDERS: PCP Family Medicine; Visit Provider Physician Assistant | DX: Z98.890 Other specified postprocedural states (principal) | CPT/HCPCS: 99213 ==

== ENCOUNTER 2023-09-26 14:25 | Outpatient (CLI) | payer OTHER, SELFPAY ==
--- NOTE | 2023-09-26 14:30 | CTR_ITS ---
PROCEDURE INFORMATION: Exam: CT Chest Without Contrast; Diagnostic Exam date and time: 09/26/2023 3:08 PM Age: 73 years old Clinical indication: Condition or disease; Lung condition and disease; Pulmonary nodule, solitary; Additional info: R91.1 - solitary pulmonary nodule TECHNIQUE: Imaging protocol: Diagnostic computed tomography of the chest without contrast. Total images: 4 Radiation optimization: All CT scans at this facility use at least one of these dose optimization techniques: automated exposure control; mA and/or kV adjustment per patient size (includes targeted exams where dose is matched to clinical indication); or iterative reconstruction. COMPARISON: 1. CT chest wo con [id number] 01/26/2023 12:[address] chest abdpel w/*[id number] 09/08/2022 12:06 PM RADIATION DOSE METRICS: Total DLP (mGy-cm): 257.8 FINDINGS: Lungs: Severe centrilobular emphysematous changes are present. Irregular area of interstitial thickening in the right upper lobe series 3, image 16 unchanged and felt to represent area of scarring. Trace bibasilar scar. Pleural spaces: 8 mm pleural base nodule laterally in the right lower lobe series 3, image 57 unchanged. 15 mm pleural based nodule laterally within the lingula series 3, image 50 unchanged. Heart: Unremarkable. No cardiomegaly. No pericardial effusion. Coronary arteries: Mild coronary arterial calcification, indicating the presence of coronary artery disease. Lymph nodes: Unremarkable. No enlarged lymph nodes. Vasculature: Unremarkable. No aortic aneurysm. Kidneys and ureters: 1 mm nonobstructive right sided kidney stone. Bones/joints: Unremarkable. No acute fracture. Soft tissues: Unremarkable. Other findings: Mild atherosclerotic disease burden is evident. CT/CT chest wo con [id number] IMPRESSION: 1. Severe centrilobular emphysematous changes are present. 2. Irregular area of interstitial thickening in the right upper lobe series 3, image 16 unchanged and felt to represent area of scarring. Trace bibasilar scar. 3. 8 mm pleural base nodule laterally in the right lower lobe series 3, image 57 unchanged. This has been stable for year. No further workup needed. 4. 15 mm pleural based nodule laterally within the lingula series 3, image 50 unchanged. This has been stable for a year. No further workup needed. 5. No new pathology detected. 6. Mild coronary arterial calcification, indicating the presence of coronary artery disease. If the patient has associated symptoms recommend management as per chest pain guidelines. If the patient is asymptomatic consider reviewing modifiable cardiovascular risk factors and managing as per guidelines for primary prevention. COMMENTS: The presence of pulmonary emphysema on CT is an independent risk factor for lung cancer. In the absence of a history or active diagnosis of lung cancer, it is recommended that this patient with emphysema be evaluated for enrollment in a low dose CT lung cancer screening program.
== END 2023-09-26 14:26 | disposition home or self-care (01) ==
LOC: RAD 14:26
PROVIDERS: PCP Family Medicine; Visit Provider Internal Medicine Pulmonary Disease
DX: R91.1 Solitary pulmonary nodule (principal); J43.2 Centrilobular emphysema
CPT/HCPCS: 71250

== ENCOUNTER → 2023-12-01 10:43 | Outpatient (BNVA) | payer OTHER, SELFPAY | PROVIDERS: PCP Family Medicine; Visit Provider Internal Medicine Pulmonary Disease | DX: J43.2 Centrilobular emphysema (principal); R91.1 Solitary pulmonary nodule; J44.9 Chronic obstructive pulmonary disease, unspecified; F17.210 Nicotine dependence, cigarettes, uncomplicated; Z99.81 Dependence on supplemental oxygen | CPT/HCPCS: 99214 ==

== ENCOUNTER → 2024-04-04 14:42 | Outpatient (BNVA) | payer OTHER, SELFPAY | PROVIDERS: PCP Family Medicine; Visit Provider Internal Medicine | DX: R06.00 Dyspnea, unspecified (principal); F17.210 Nicotine dependence, cigarettes, uncomplicated; Z87.898 Personal history of other specified conditions | CPT/HCPCS: 99213 ==

== ENCOUNTER → 2024-04-05 15:27 | Outpatient (BNVA) | payer OTHER, SELFPAY | PROVIDERS: PCP Family Medicine; Visit Provider Orthopaedic Surgery | DX: M54.9 Dorsalgia, unspecified (principal); M48.062 Spinal stenosis, lumbar region with neurogenic claudication | CPT/HCPCS: 72110; 99214 ==

== ENCOUNTER 2024-05-23 13:27 | Outpatient (CLI) | payer OTHER, SELFPAY ==
--- NOTE | 2024-05-23 13:30 | USCV_ITS ---
Manjit Hernandes Age: 74 Gender: M : 1950 Exam Date: 05/23/2024 13:40 Ordering Phys: Marcos Alanis M.D ([email or web address]) Technologist: Exam Location: [facility] [place] [facility] [place] Indication: BP: 130 / 70 HR: 66 Rhythm: Sinus Technical Quality: Adequate MEASUREMENTS (Male / Female) Normal Values 2D ECHO LV Diastolic Diameter PLAX 3.2 cm 4.2 - 5.9 / 3.9 - 5.3 cm IVS Diastolic Thickness 1.3 cm 0.6 - 1.0 / 0.6 - 0.9 cm IVS Systolic Thickness 1.1 cm LVPW Diastolic Thickness 1.2 cm 0.6 - 1.0 / 0.6 - 0.9 cm LVPW Systolic Thickness 1.6 cm LVOT Diameter 2.0 cm LV Ejection Fraction 2D Teich 56.1 % LV Ejection Fraction MOD 4C 68.5 % LV Ejection Fraction MOD 2C 63.5 % LV Ejection Fraction 2C AL 64.1 % LA Diameter 2.8 cm RA Systolic Volume 4C AL 28.0 ml RA Systolic Volume 4C MOD 29.6 ml LA Sys Volume AL 40.1 cm cubed LA Sys Volume Index AL 20.4 cm cubed/m squared Aorta at Sinotubular Diameter 3.1 cm IVC Diameter 1.9 cm M-MODE LA Ao Ratio MM 1.1 AV Cusp Separation MM 1.7 cm DOPPLER AV Peak Velocity 141.0 cm/s LVOT Peak Velocity 112.0 cm/s AV Area Cont Eq vti 2.4 cm squared AV Area Cont Eq pk 2.5 cm squared MV Peak Velocity 102.0 cm/s MV Area PHT 3.3 cm squared Mitral E to A Ratio 1.3 TV Peak Velocity 212.0 cm/s TR Peak Velocity 263.0 cm/s TR Peak Gradient 27.7 mmHg TV Peak E Velocity 81.0 cm/s PV Peak Velocity 82.0 cm/s FINDINGS Left Ventricle Left ventricle is normal size. LV systolic function is normal with EF of 60-65%. No regional wall motion abnormalities are seen Right Ventricle Normal in size and function Right Atrium Normal in size Left Atrium Normal in size Mitral Valve Structurally normal mitral valve. Mild mitral regurgitation Aortic Valve Structurally normal aortic valve. No significant stenosis or regurgitation Tricuspid Valve Mild tricuspid regurgitation. Pulmonary artery systolic pressure is normal. Pulmonic Valve Not well visualized Pericardium Normal Aorta Normal in size IVC Appears to be normal CONCLUSIONS LV systolic function is normal with EF of 60-65% Mild mitral regurgitation Mild tricuspid regurgitation Compared to prior echocardiogram from 2021, no significant changes are seen. Marcos Alanis MD (Electronically Signed) Final Date: 27 May 2024 10:42 S
== END 2024-05-23 13:28 | disposition home or self-care (01) ==
LOC: RAD 13:28
PROVIDERS: PCP Family Medicine; Visit Provider Internal Medicine
DX: R06.02 Shortness of breath (principal)
CPT/HCPCS: 93306

== ENCOUNTER → 2025-05-28 14:09 | Outpatient (BNVA) | payer OTHER, SELFPAY | PROVIDERS: PCP Family Medicine; Visit Provider Internal Medicine | DX: R06.09 Other forms of dyspnea (principal) | CPT/HCPCS: 99213 ==